=== PATIENT | male | born 1955 | race Caucasian/White ===

== ENCOUNTER 2023-09-13 11:45 | Emergency (ER) | payer SELFPAY ==
[~2023-09-13] VITALS: Ht 167.6 cm; Wt 64.0 kg
[2023-09-13 11:47] VITALS: BP 157/99; PULSE 100; TEMP 98.8; O2SAT 97
[2023-09-13] MEDS ORDERED: VALA10002 MT (12:54)
[2023-09-13] MEDS ORDERED: IBUP-2029 MT (12:55)
[2023-09-13 13:16] VITALS: RESP 16
== END 2023-09-13 13:19 | disposition home or self-care (01) ==
LOC: ER 11:45
DX: B02.9 Zoster without complications (principal)
CPT/HCPCS: 99283; Z7610 ×2; C1893